=== PATIENT | male | born 1975 | race Caucasian/White ===

== ENCOUNTER 2016-10-13 21:08 | Emergency (ER) | payer SELFPAY ==
[~2016-10-13] VITALS: Ht 170.2 cm; Wt 67.0 kg
[2016-10-13 21:50] VITALS: Ht 170.2 cm; Wt 67.0 kg
--- NOTE | 2016-10-13 23:42 | RADRPT ---
PROCEDURE: X-ray facial bones CLINICAL INDICATION: Nasal contusion. TECHNIQUE: 3 views of the nasal bones. COMPARISON: None FINDINGS: Air-fluid level in the right maxillary sinus. This may represent sequela of occult fracture in the right facial region. Consider CT examination of the facial bones for further evaluation. Nondisplaced fractures of the bilateral nasal bones. IMPRESSION: 1. Air-fluid level and right maxillary sinus may represent hemorrhage in setting of occult fracture of the right facial region. 2. Consider CT examination of the facial bones for further evaluation. 3. Nondisplaced nasal bone fractures are seen, bilaterally. RPTAT: [facility] Physician Rubin Date Time Electronically viewed and signed by Physician Rubin on 10/13/2016 23:42 RS/
--- NOTE | 2016-10-14 00:24 | RADRPT ---
PROCEDURE: CT facial bones CLINICAL INDICATION: Trauma TECHNIQUE: A CT of the facial bones was performed utilizing high-resolution axial images. Sagitta l, coronal, and multiplanar reformatted images were made. Additionally, 3-D reformatted images were made. The CTDIvol is 29.49 mGy and the DLP is 577.82 mGy-cm. One or more the following dose reduction techniques were utilized: Automated exposure control, adjus tment of the mA and / or kV according to patient's size, or use of iterative reconstruction techniqu e. COMPARISON: None. FINDINGS: There is a fracture of the superior bony nasal septum with approximate 2 mm displacement of the dist al fracture fragment to the left. There is the appearance of a nondepressed fracture of the distal approximate 1.3 cm segment of the right nasal bone. There is deformity of bilateral zygomatic arche s suggestive of old fractures. The orbits, as visualized, appear intact. The overlying soft tissue s are grossly unremarkable. There is appearance of blood in bilateral maxillary sinuses and likely s mall retention cysts in the left maxillary sinus as well. IMPRESSION: There is a fracture of the superior bony nasal septum with approximate 2 mm displacement of the dist al fracture fragment to the left. There is the appearance of a nondepressed fracture of the distal approximate 1.3 cm segment of the right nasal bone. There is deformity of bilateral zygomatic arches suggestive of old fractures. Please see above. RPTAT: HJES .Magen Sinclair MD, MD Date Time Electronically viewed and signed by .Magen Sinclair MD, MD on 10/14/2016 00:24 .S/
[2016-10-14] MEDS ORDERED: HYDR-906 PO (00:47)
--- NOTE | 2016-10-14 01:00 | ERD ---
ER Documentation Chief Complaint Date/Time DATE: 10/14/16 TIME: 00:56 Chief Complaint bloody nose s/p hit face on glass door 1 hour MOBILITY ARCHITECT HPI This is a 41-year-old male presents to the ER after he hit his nose on a sliding glass door around 8 PM. Patient states that his nose was bleeding profusely and that he could not get the bleeding to stop. Patient does have nasal pain. Patient did not lose consciousness he did not hit his head. He does not have any nausea or vomiting. ROS 12 point review of systems was done, all negative except per HPI. Medications Home Meds Active Scripts Hydrocodone/Acetaminophen (Cummings 5-325 Tablet) 1 Each Tablet, 1 TAB PO Q6H Y for PAIN, #20 TAB Prov:JOHNSON TOBAR 10/14/16 Allergies Allergies: Coded Allergies: No Known Allergy (Unverified , 10/13/16) PMhx/Soc Medical and Surgical Hx: pt denies Medical Hx, pt denies Surgical Hx Hx Alcohol Use: Yes (OCC) Hx Substance Use: No Hx Tobacco Use: No Smoking Status: Never smoker Physical Exam Vitals Vital Signs Date Time Temp Pulse Resp B/P Pulse Ox O2 Delivery O2 Flow Rate FiO2 10/13/16 21:50 98.2 70 18 150/99 100 Physical Exam GENERAL: The patient is well developed and appropriate for usual state of health , in no apparent distress. HEENT: Atraumatic. Conjunctivae are pink. Pupils equal, round, and reactive to light. Extraocular muscles are grossly intact. There is some swelling of the bridge of the nose, bleeding was controlled when I examined patient. There was no evidence of septal hematoma. The oropharynx is clear with no erythema or exudates. CHEST: Clear to auscultation bilaterally. There are no rales, wheezes or rhonchi. HEART: Regular rate and rhythm. No murmurs, clicks, rubs or gallops. NEURO: Alert and oriented. Procedures/MDM This is a 41-year-old male presents to the ER after he hit his nose the glass door. Patient does have a nasal fracture. I discussed CT scan findings with my supervising physician Dr. العلي and outpatient follow-up is appropriate for this patient. Patient's bleeding was controlled in the ER, and there is no evidence of septal hematoma. I discussed the importance of following up with an ENT doctor as soon as possible with patient and his friend. Patient will be sent home with Cummings for pain he is to follow-up with his primary care doctor within 1-2 days and request an ENT authorization, I give patient copies of his reports and ordered a CD so he can give it to ENT doctor. Patient needs to return to ER sooner if symptoms worsen. My medical decision making was shared with the patient he understands and agrees with plan. Departure Diagnosis: Primary Impression: Nasal fracture Condition: Stable Patient Instructions: Fracture, Nose (With X-Ray) Additional Instructions: Call your primary care doctor TOMORROW for an appointment during the next 1-2 days.See the doctor sooner or return here if your condition worsens before your appointment time. JOHNSON TOBAR Oct 14, 2016 01:00
[2016-10-14 01:18] VITALS: BP 127/68; PULSE 66; RESP 18; TEMP 98.2
== END 2016-10-14 01:18 | disposition home or self-care (01) ==
LOC: FTE 21:08
DX: S02.2XXA Fracture of nasal bones, initial encounter for closed fracture (principal); W22.8XXA Striking against or struck by other objects, initial encounter; Y92.9 Unspecified place or not applicable
CPT/HCPCS: 70160; 70486